=== PATIENT | male | born 1960 | race Hispanic/Latino ===

== ENCOUNTER 2017-09-16 02:01 | Inpatient (IN) | payer MEDICARE, OTHER ==
[~2017-09-16] VITALS: Ht 152.4 cm; Wt 110.5 kg
[2017-09-16] VITALS (8 sets, daily range): BP systolic 111–143; BP diastolic 49–81
[2017-09-16] MEDS ORDERED: ONDANSETRON HCL INJ 2 MG/ML VIAL IV STA (02:44)
[2017-09-16] MEDS ORDERED: MORPHINE SULFATE 2 MG/ML SYR IV STA (02:44)
[2017-09-16] MEDS ORDERED: PANTOPRAZOLE 40 MG 10ML VIAL IV STA (02:44)
[2017-09-16] MEDS ORDERED: SODIUM CHLORIDE 0.9% 1000ML 1,000 ML IV STA (02:44)
[2017-09-16 02:51] LABS: BASOPHILS # (AUTO) 0.1 (0.0-0.1); BASOPHILS % 0.9 % (0.0-1.0); EOSINOPHILS # (AUTO) 0.1 (0.0-0.4); EOSINOPHILS % 1.1 % (0.0-6.0); HEMATOCRIT 43.5 % (38.2-49.6); HEMOGLOBIN 14.9 g/dL (14.0-18.0); LYMPHOCYTES # (AUTO) 4.5 (1.0-3.2); LYMPHOCYTES % 59.4 % (18.0-39.1); MEAN CORPUSCULAR HEMOGLOBIN 29.8 pg (28-32); MEAN CORPUSCULAR HGB CONC 34.3 g/dL (31-35); MONOCYTES # (AUTO) 0.6 (0.2-0.8); MONOCYTES % 7.5 % (4.4-11.3); NEUTROPHILS # (AUTO) 2.3 (2.1-6.9); NEUTROPHILS % 30.8 % (38.7-80.0); PLATELET COUNT 274 x10e3/uL (140-360); RED CELL DISTRIBUTION WIDTH 12.6 % (11.7-14.4)
[2017-09-16 02:53] LABS: BILIRUBIN,URINE NEGATIVE (NEGATIVE); KETONES,URINE NEGATIVE (NEGATIVE); LEUKOCYTE ESTERASE ,URINE NEGATIVE (NEGATIVE); NITRITE,URINE NEGATIVE (NEGATIVE); PROTEIN,URINE DIPSTICK NEGATIVE (NEGATIVE); URINE UROBILINOGEN 0.2 mg/dL (0.2 - 1)
[2017-09-16 02:54] LABS: CLARITY,URINE CLEAR (CLEAR); COLOR,URINE YELLOW (YELLOW)
[2017-09-16 02:56] LABS: INR 1.03; PROTHROMBIN TIME 12.7 seconds (11.9-14.5)
[2017-09-16 02:58] LABS: BACTERIA,URINE RARE /HPF; EPITHELIAL CELLS,URINE FEW /LPF; RBC,URINE 0-5 /HPF (0-5); WBC,URINE (MAN) 0-5 /HPF (0-5)
[2017-09-16 03:06] LABS: ALANINE AMINOTRANSFERASE 55 IU/L (0-55); ALBUMIN 4.3 g/dL (3.5-5.0); ALBUMIN/GLOBULIN RATIO 1.1 (0.8-2.0); ALKALINE PHOSPHATASE 64 IU/L (40-150); ANION GAP 15.9 mmol/L (8-16); BLOOD UREA NITROGEN 9 mg/dL (7-26); BUN/CREATININE RATIO 10 (6-25); CALCIUM 9.6 mg/dL (8.4-10.2); CARBON DIOXIDE 20 mmol/L (22-29); CHLORIDE 104 mmol/L (98-107); CREATINE KINASE 56 IU/L (30-200); CREATININE, SERUM 0.94 mg/dL (0.72-1.25); EST GLOMERULAR FILTRATION RATE > 60 ML/MIN (60-); GLUCOSE 231 mg/dL (74-118); POTASSIUM 3.9 mmol/L (3.5-5.1); SODIUM 136 mmol/L (136-145)
--- NOTE | 2017-09-16 03:20 | Diagnostic Imaging Report ---
CHEST 2 VIEWS, Technique: CHEST 2 VIEWS Comparison: None Clinical history: \S\CP AROUND LEFT PACEMAKER INTO ARM NON-REPRODUCIBLE \[id number] \[id number] DISCUSSION: Left chest wall dual-lead pacer with leads projecting over the right atrium and ventricle. Cardiomediastinal silhouette is within normal limits. Linear left basilar atelectasis/scarring. No consolidation, edema, effusion or pneumothorax. IMPRESSION: No acute abnormality Signed by: Dr Georgette Phan MD on 09/16/2017 3:16 AM
[2017-09-16] MEDS ORDERED: HYDROCODONE/APAP 10MG-325MG TAB PO PRN (05:45)
[2017-09-16] MEDS ORDERED: ONDANSETRON HCL 4 MG ORAL DISINTEGRATING TAB PO PRN (05:45)
[2017-09-16] MEDS ORDERED: MORPHINE SULFATE 4 MG/ML SYR IV PRN (05:45)
[2017-09-16] MEDS ORDERED: NORCO 7.5-3251 EACH PO (06:33)
[2017-09-16] MEDS ORDERED: VERAPAMIL ER120 MG PO (06:34)
[2017-09-16] MEDS ORDERED: ZOFRAN ODT4 MG (06:35)
[2017-09-16] MEDS ORDERED: DEXILANT60 MG PO (06:36)
[2017-09-16] MEDS ORDERED: BUTALB-ACETAMI1 EACH PO (06:39)
[2017-09-16] MEDS ORDERED: ZOLPIDEM TARTRAT5 MG PO (06:39)
[2017-09-16] MEDS ORDERED: SERTRALINE HCL100 MG PO (06:39)
[2017-09-16] MEDS ORDERED: DIOVAN80 MG PO (06:40)
[2017-09-16] MEDS ORDERED: METFORMIN HCL850 MG PO (06:41)
[2017-09-16] MEDS ORDERED: GEMFIBROZIL600 MG (06:42)
[2017-09-16] MEDS ORDERED: DICYCLOMINE HCL20 MG PO (06:42)
--- OUTSIDE RECORDS SUMMARY | 2017-09-16 07:11 | XMS REPORT ---
Author Author [facility] Address Unknown Phone Unavailable Care Team Providers Care Staff Readiness Officer Name Role Phone JAYLAN BRUCE Unavailable Unavailable Problems This patient has no known problems. Allergies, Adverse Reactions, Alerts This patient has no known allergies or adverse reactions. Medications This patient has no known medications. Results Test Description Test Time Test Comments Text Results Atomic Results Result Comments CHEST 2 VIEWS [place] [address] Patient Name: DAMIEN SUMNER MR #: [id number] : 1960 Age/Sex: 57/M Req #: [id number] Adm Physician: Ordered by: JAYLAN BRUCE MD Report #: [id number] Location: ER Room/Bed: Procedure: [id number] DX/CHEST 2 VIEWS Exam Date: 09/16/17 Exam Time: 257 REPORT STATUS: Signed CHEST 2 VIEWS, Technique: CHEST 2 VIEWS Comparison: None Clinical history: S CP AROUND LEFT PACEMAKER INTO ARM NON-REPRODUCIBLE DISCUSSION: Left chest wall dual-lead pacer with leads projecting over the right atrium and ventricle. Cardiomediastinal silhouette is within normal limits. Linear left basilar atelectasis/ scarring. No consolidation, edema, effusion or pneumothorax. IMPRESSION : No acute abnormality Signed by: Dr Geovani Phan MD on 09/16/2017 3:16 AM Dictated By: GEOVANI PHAN MD 5 Transcribed By: KATHY on 09/16/17315 COPY TO: JAYLAN BRUCE MD
[2017-09-16] MEDS ORDERED: INSULIN REGULAR, HUMAN 100 UNIT/1 ML 3ML VIAL SQ SCH (07:30)
[2017-09-16] MEDS ORDERED: VALSARTAN 80 MG TAB PO SCH (09:00)
[2017-09-16] MEDS ORDERED: VERAPAMIL HCL 180 MG TBER PO SCH (09:00)
[2017-09-16 10:28] LABS: CREATINE KINASE 52 IU/L (30-200)
[2017-09-16] MEDS: INSULIN REGULAR, HUMAN 100 UNIT/1 ML 3ML VIAL SQ SCH ×3 (11:30→21:45)
[2017-09-16] MEDS: DICYCLOMINE HCL 20 MG TAB PO SCH ×3 (13:00→21:42)
[2017-09-16] MEDS ORDERED: CLOPIDOGREL BISULFATE 75 MG TAB PO ONE (16:45)
[2017-09-16] MEDS ORDERED: METFORMIN HCL 500 MG TAB CR PO SCH (17:00)
[2017-09-16] MEDS ORDERED: METFORMIN HCL 850 MG TAB PO SCH (17:00)
[2017-09-16] MEDS: HYDROCODONE/APAP 7.5MG-325MG 1 EA TAB PO SCH (17:24)
[2017-09-16] MEDS: GEMFIBROZIL 600 MG TAB PO SCH (17:24)
--- NOTE | 2017-09-16 17:32 | Consultation ---
DATE OF CONSULTATION: September 16, 2017 CARDIAC CONSULTATION REASON FOR CONSULTATION: Chest pain. HISTORY: A 57-year-old gentleman who is known with obesity, hypertension, diabetes mellitus. Prior history of pacemaker implantation and coronary artery disease "70% blockage in one artery" with cardiac catheterization a few years back. Patient lives in [place], [place]. He is here with his brother, who is having advanced cirrhosis. He is staying here in [place] with his sister. While he was there, he started having chest pain. He describes the chest pain as retrosternal, radiating to his back, to his neck, and to his jaw to his arm. Patient was alarmed by that. He said that his pain is severe. It is going on for the last 4 or 5 days. He was busy with his brother, but then his pain was becoming repetitive; and, so, he decided to come to the emergency room. He was admitted for further management. Cardiac consultation is obtained. D-dimer on admission was normal. Two sets of cardiac enzymes are normal. Patient seems to be comfortable now. He is worried about pain over his left pacemaker, which is chronic since the pacemaker implantation 4 years ago. His activities are very limited because of his knee problem. He uses a cane to walk. He described his pain with typical anginal symptoms. There is sleep apnea but no orthopnea. There is shortness of breath on exertion, class III. There is no paroxysmal nocturnal dyspnea. No syncope or presyncope. REVIEW OF SYSTEMS: CARDIAC: As per above. PULMONARY: No cough. No hemoptysis. No pleuritic chest pain. Easy fatigability and shortness of breath on exertion. GI: Constipation. : Difficulty of urination. MUSCULAR: Back pain, knee pain, uses a cane to walk. Peripheral vascular claudication. NEUROLOGICAL: Peripheral neuropathy symptoms. No localized deficit. No seizure activity. OTHERS: Chronic back pain, knee pain, on pain medication. HOME MEDICATIONS: Long list including verapamil SR 250 mg a day, valsartan 80 mg a day, [place], morphine sulfate and other p.r.n. medication. ALLERGIES: PENICILLIN, SULFA AND ASPIRIN. ASPIRIN CAUSED PATIENT TO HAVE HIVES. PAST MEDICAL HISTORY: 1. Obesity. 2. Severe advanced degenerative joint disease. 3. Hypertension. 4. Diabetes mellitus. 5. Coronary artery disease. 6. Pacemaker. 7. Hyperlipidemia. 8. Diverticulosis. 9. Major GI surgery for severe diverticulitis and diverticulosis. 10. Right and left knee replacement. 11. Chronic aches and pains. 12. Bilateral carpal tunnel surgery. 13. Pacemaker implantation. 14. Severe peripheral neuropathy. SOCIAL HISTORY: He is . He used to work in [employer], but he is crippled because of his back problem and his other problem. He stopped smoking many years ago. He does not drink alcohol. FAMILY HISTORY: Several members of the family are with diabetes mellitus, hypertension. A brother with liver cirrhosis. PHYSICAL EXAMINATION: GENERAL: Morbidly obese gentleman. VITAL SIGNS: Height of 5 feet 2 inches, weight of 250 pounds. Blood pressure 140/80. Heart rate of 60. Respiratory rate of 18. HEENT: Pupils are reactive. NECK: No elevation of jugular venous pulsation. No bruit. CHEST: Decreased air entry but clear to auscultation and percussion. Pacemaker noted in place. HEART: PMI 5th left intercostal space. Normal 1st and 2nd heart sounds. ABDOMEN: Soft with good bowel sounds. EXTREMITIES: No cyanosis, no clubbing, no edema. Scar of previous knee surgery. Decreased feet pulses. NEUROLOGIC: Awake, alert, oriented. Uses cane to walk. No motor deficits. LABORATORY DATA: Sodium of 136, potassium 3.9, BUN of 10, creatinine of 0.94, glucose of 231. PT of 12 seconds, PTT of 33 seconds. White blood cell count of 7.49, hemoglobin 14.9, hematocrit 44%, platelet count of 270,000. EKG showing sinus rhythm, low voltage. BNP is normal. Two sets of cardiac enzymes are normal. D-dimer is normal. IMPRESSION AND PLAN: 1. Chest pain in patient with multiple risk factors, coronary artery disease until proven otherwise, namely in view of "one artery was 70% blocked" a few years back. 2. Pacemaker implantation. 3. Hypertension. 4. Diabetes mellitus with end-organ damage. 5. Obesity. 6. Hypercholesteremia. 7. Sleep apnea. 8. Severe peripheral neuropathy. 9. Chronic pain. Cardiac-de oliveira, we discussed his status at length. His questions are answered. Options of workup are discussed. Will schedule patient for nuclear cardiac stress test, and it will be Lexiscan since patient is unable to exercise. Patient will be loaded with Plavix. Case discussed and explained. Questions are answered. Job#: [id number] EV
[2017-09-16] MEDS ORDERED: ACETAMIN/BUTALBITAL/CAFFEINE TAB PO PRN (18:00)
[2017-09-16] MEDS ORDERED: ACETAMIN/BUTALBITAL/CAFFEINE TAB PO SCH (18:00)
[2017-09-16] MEDS: ZOLPIDEM TARTRATE 5 MG TAB PO SCH (21:42)
[2017-09-16] MEDS: SERTRALINE HCL 100 MG TAB PO SCH (21:43)
[2017-09-17] VITALS (7 sets, daily range): BP systolic 113–151; BP diastolic 63–83
[2017-09-17] MEDS: HYDROCODONE/APAP 7.5MG-325MG 1 EA TAB PO SCH ×3 (06:00→12:00)
[2017-09-17 06:40] LABS: BASOPHILS # (AUTO) 0.1 (0.0-0.1); BASOPHILS % 1.2 % (0.0-1.0); EOSINOPHILS # (AUTO) 0.1 (0.0-0.4); HEMATOCRIT 40.2 % (38.2-49.6); HEMOGLOBIN 13.5 g/dL (14.0-18.0); LYMPHOCYTES # (AUTO) 2.5 (1.0-3.2); LYMPHOCYTES % 49.4 % (18.0-39.1); MEAN CORPUSCULAR HEMOGLOBIN 29.6 pg (28-32); MEAN CORPUSCULAR HGB CONC 33.6 g/dL (31-35); MEAN CORPUSCULAR VOLUME 88.2 fL (81-99); MONOCYTES # (AUTO) 0.5 (0.2-0.8); MONOCYTES % 9.5 % (4.4-11.3); NEUTROPHILS # (AUTO) 1.9 (2.1-6.9); NEUTROPHILS % 37.5 % (38.7-80.0); PLATELET COUNT 206 x10e3/uL (140-360); RED BLOOD COUNT 4.56 x10e6/uL (4.3-5.7); RED CELL DISTRIBUTION WIDTH 12.4 % (11.7-14.4)
[2017-09-17 07:03] LABS: ALANINE AMINOTRANSFERASE 50 IU/L (0-55); ALBUMIN 3.7 g/dL (3.5-5.0); ALBUMIN/GLOBULIN RATIO 1.1 (0.8-2.0); ALKALINE PHOSPHATASE 58 IU/L (40-150); ANION GAP 13.1 mmol/L (8-16); BLOOD UREA NITROGEN 10 mg/dL (7-26); BUN/CREATININE RATIO 11 (6-25); CALCIUM 9.2 mg/dL (8.4-10.2); CARBON DIOXIDE 25 mmol/L (22-29); CHLORIDE 105 mmol/L (98-107); CHOL/HDL RATIO 4.8 (3.9-4.7); CHOLESTEROL 184 MD/DL (0-199); CREATININE, SERUM 0.87 mg/dL (0.72-1.25); EST GLOMERULAR FILTRATION RATE > 60 ML/MIN (60-); GLUCOSE 198 mg/dL (74-118); HDL CHOLESTEROL 38 MG/DL (40-60); LDL CHOLESTEROL 108 MG/DL (60-130); POTASSIUM 4.1 mmol/L (3.5-5.1); SODIUM 139 mmol/L (136-145); TRIGLYCERIDES 192 MG/DL (0-149)
[2017-09-17 07:24] LABS: THYROID STIMULATING HORMONE 1.557 uIU/mL (0.350-4.940)
[2017-09-17] MEDS: INSULIN REGULAR, HUMAN 100 UNIT/1 ML 3ML VIAL SQ SCH ×4 (07:30→20:30)
[2017-09-17] MEDS: VALSARTAN 80 MG TAB PO SCH (09:00)
[2017-09-17] MEDS: VERAPAMIL HCL 120 MG TABSR PO SCH (09:00)
[2017-09-17] MEDS: DICYCLOMINE HCL 20 MG TAB PO SCH ×4 (09:00→20:30)
[2017-09-17] MEDS: GEMFIBROZIL 600 MG TAB PO SCH ×2 (09:00→17:15)
[2017-09-17] MEDS ORDERED: REGADENOSON 0.4 MG/5 ML SYR IV ONE (10:33)
[2017-09-17] MEDS: PANTOPRAZOLE SOD 40 MG TABEC PO SCH (12:53)
[2017-09-17] MEDS: CLOPIDOGREL BISULFATE 75 MG TAB PO SCH (12:53)
[2017-09-17] MEDS: SODIUM CHLORIDE 0.9% 1000ML 1,000 ML IV SCH (12:53)
--- NOTE | 2017-09-17 12:54 | Cardiology Report ---
DATE OF STUDY: September 17, 2017 LEXISCAN NUCLEAR CARDIAC STRESS TEST TECHNICAL DETAILS: This is resting stress protocol. For the resting pictures, patient is given a total of 10.7 mCi of Myoview. Half an hour after injection, proper scanning was done. For the stress part, patient attached to the EKG machine, baseline measurement was done, and then patient given 0.4 mg of Lexiscan followed immediately by 27 mCi of Myoview. Proper SPECT imaging and scanning and processing were done. Patient tolerated the procedure. There were no complication. RESULTS A. Stress part: There were no changes in the blood pressure and heart rate. They remained stable from 82 to 100 and blood pressure at 130/80. No significant EKG changes. B. Nuclear stress test. 1. Myocardial perfusion. A. Resting image showed smooth distribution of the isotopes through all the segments with no abnormal uptake. B. Stress perfusion images showed abnormality with decreased uptake in the lateral segment as well as the part of the anterolateral segments. 2. Volume measurement: Left ventricular end-diastolic volume of 73 mL and systolic volume of 31 mL with an ejection fraction of 37%. 3. Segmental wall motion: All segments seem to be gonzalo normally except for mild hypokinesis involving the apical and the lateral segments. IMPRESSION: Abnormal nuclear stress test with ischemic perfusion defect involving the lateral and segmental wall motion abnormality with preserved left ventricular systolic function. Job#: [id number] HOMAR MAN
[2017-09-17] MEDS: MORPHINE SULFATE 2 MG/ML SYR IV PRN (16:30)
[2017-09-17] MEDS ORDERED: METFORMIN HCL 500 MG TAB CR PO SCH (17:00)
[2017-09-17] MEDS: SERTRALINE HCL 100 MG TAB PO SCH (20:30)
[2017-09-17] MEDS: ZOLPIDEM TARTRATE 5 MG TAB PO SCH (20:30)
[2017-09-17] MEDS: HYDROCODONE/APAP 7.5MG-325MG 1 EA TAB PO PRN (22:18)
[2017-09-18] VITALS (12 sets, daily range): BP systolic 112–142; BP diastolic 54–81
[2017-09-18] MEDS: MORPHINE SULFATE 2 MG/ML SYR IV PRN ×5 (00:02→21:20)
[2017-09-18 07:05] LABS: BASOPHILS # (AUTO) 0.1 (0.0-0.1); EOSINOPHILS # (AUTO) 0.1 (0.0-0.4); EOSINOPHILS % 1.6 % (0.0-6.0); HEMATOCRIT 41.2 % (38.2-49.6); HEMOGLOBIN 14.3 g/dL (14.0-18.0); LYMPHOCYTES # (AUTO) 2.7 (1.0-3.2); LYMPHOCYTES % 52.8 % (18.0-39.1); MEAN CORPUSCULAR HEMOGLOBIN 29.7 pg (28-32); MEAN CORPUSCULAR HGB CONC 34.7 g/dL (31-35); MEAN CORPUSCULAR VOLUME 85.7 fL (81-99); MONOCYTES # (AUTO) 0.4 (0.2-0.8); NEUTROPHILS # (AUTO) 1.9 (2.1-6.9); NEUTROPHILS % 36.4 % (38.7-80.0); PLATELET COUNT 229 x10e3/uL (140-360); RED BLOOD COUNT 4.81 x10e6/uL (4.3-5.7); RED CELL DISTRIBUTION WIDTH 12.2 % (11.7-14.4)
[2017-09-18] MEDS ORDERED: HEPARIN SOD/SOD CHLORIDE 2,000 ML PRN (07:13)
[2017-09-18] MEDS ORDERED: IOPAMIDOL 370 MG/ML 200 ML INFUS..BTL INJ PRN (07:13)
[2017-09-18] MEDS ORDERED: LIDOCAINE HCL 2% LOCAL 20 ML VIAL PRN (07:13)
[2017-09-18] MEDS ORDERED: MIDAZOLAM HCL 2 MG/2 ML VIAL PRN (07:27)
[2017-09-18] MEDS: INSULIN REGULAR, HUMAN 100 UNIT/1 ML 3ML VIAL SQ SCH ×4 (07:30→22:36)
[2017-09-18 07:32] LABS: ALANINE AMINOTRANSFERASE 47 IU/L (0-55); ALBUMIN/GLOBULIN RATIO 1.2 (0.8-2.0); ALKALINE PHOSPHATASE 52 IU/L (40-150); ANION GAP 12.8 mmol/L (8-16); BLOOD UREA NITROGEN 14 mg/dL (7-26); BUN/CREATININE RATIO 16 (6-25); CALCIUM 9.2 mg/dL (8.4-10.2); CARBON DIOXIDE 24 mmol/L (22-29); CHLORIDE 104 mmol/L (98-107); CREATININE, SERUM 0.89 mg/dL (0.72-1.25); EST GLOMERULAR FILTRATION RATE > 60 ML/MIN (60-); GLUCOSE 187 mg/dL (74-118); POTASSIUM 3.8 mmol/L (3.5-5.1); SODIUM 137 mmol/L (136-145)
[2017-09-18] MEDS ORDERED: SODIUM CHLORIDE 0.9% 1000ML 1,000 ML PRN (08:15)
[2017-09-18] MEDS: SODIUM CHLORIDE 0.9% 1000ML 1,000 ML IV SCH (08:15)
[2017-09-18] MEDS: FENTANYL CITRATE/PF 100MCG/2 ML INJ PRN ×2 (08:40→18:44)
[2017-09-18] MEDS: VERAPAMIL HCL 120 MG TABSR PO SCH ×2 (09:00→10:41)
[2017-09-18] MEDS: CLOPIDOGREL BISULFATE 75 MG TAB PO SCH (09:00)
[2017-09-18] MEDS: PANTOPRAZOLE SOD 40 MG TABEC PO SCH ×2 (09:00→10:41)
[2017-09-18] MEDS: GEMFIBROZIL 600 MG TAB PO SCH ×2 (09:00→17:00)
[2017-09-18] MEDS: VALSARTAN 80 MG TAB PO SCH ×2 (09:00→10:41)
[2017-09-18] MEDS: DICYCLOMINE HCL 20 MG TAB PO SCH ×4 (09:00→20:57)
--- NOTE | 2017-09-18 10:12 | Operative Report ---
DATE OF PROCEDURE: September 18, 2017 TITLE OF PROCEDURE: Left cardiac catheterization. INDICATIONS: Repeated chest pain, angina unstable in nature, known coronary artery disease, "one artery 70% disease by cardiac cath a few years back," and positive nuclear stress test. TECHNICAL DETAILS: After the usual sterile preparation and draping procedure, intravenous Versed and fentanyl were given for sedation and local Xylocaine for anesthesia. A 4-Maori sheath was established in place. Yary left 4 and 3DRC catheters to engage coronaries. Pigtail for hemodynamic measurement and left ventriculogram. At the end of the procedure, sheath was removed. Hemostasis achieved manually. No complication and no blood loss. RESULTS A. Coronary angiogram: 1. Left main free of disease. 2. LAD 30% proximal disease, 40% mid-LAD disease. 3. Circumflex coronary artery giving 3 obtuse marginals. The 1st and the 3rd are small with 30% to 40% disease. The 2nd obtuse marginal is large and free of disease. 4. Right coronary artery: There is proximal lesion approximately 50% to 60%. B: Hemodynamics: Aorta pressure 130/80. LV pressure 130/17. C. Left ventriculogram in the right anterior oblique view showed normal size ventricle with an ejection fraction of 60%. IMPRESSION 1. Single-vessel coronary artery disease, right coronary artery. 2. Preserved left ventricular systolic function at 60%. COMPLICATIONS: None. BLOOD LOSS: None. RECOMMENDATION: Medical therapy. Job#: [id number]
[2017-09-18] MEDS: HYDROCODONE/APAP 7.5MG-325MG 1 EA TAB PO PRN (19:45)
[2017-09-18] MEDS: ZOLPIDEM TARTRATE 5 MG TAB PO SCH (20:56)
[2017-09-18] MEDS: SERTRALINE HCL 100 MG TAB PO SCH (20:57)
[2017-09-18] MEDS ORDERED: ATORVASTATIN 20 MG TAB PO SCH (21:00)
[2017-09-19] VITALS: BP 120/56
[2017-09-19] MEDS: SODIUM CHLORIDE 0.9% 1000ML 1,000 ML IV SCH (03:34)
[2017-09-19] MEDS: MORPHINE SULFATE 2 MG/ML SYR IV PRN (03:41)
[2017-09-19 04:00] VITALS: BP 130/57
[2017-09-19 07:45] VITALS: BP 122/58
[2017-09-19 08:00] VITALS: BP 122/58
[2017-09-19] MEDS: INSULIN REGULAR, HUMAN 100 UNIT/1 ML 3ML VIAL SQ SCH (08:00)
[2017-09-19] MEDS: GEMFIBROZIL 600 MG TAB PO SCH (09:00)
[2017-09-19] MEDS: VALSARTAN 80 MG TAB PO SCH (09:00)
[2017-09-19] MEDS: DICYCLOMINE HCL 20 MG TAB PO SCH (09:00)
[2017-09-19] MEDS: CLOPIDOGREL BISULFATE 75 MG TAB PO SCH (09:00)
[2017-09-19] MEDS: VERAPAMIL HCL 120 MG TABSR PO SCH (09:00)
[2017-09-19] MEDS: PANTOPRAZOLE SOD 40 MG TABEC PO SCH (09:00)
[2017-09-19] MEDS: HYDROCODONE/APAP 7.5MG-325MG 1 EA TAB PO PRN (11:19)
[2017-09-19 12:00] VITALS: BP 105/55
== END 2017-09-19 14:45 | disposition home or self-care (01) | DRG 287 ==
LOC: ER 02:01 → ERHOLD 07:06 → IMCU 07:10 → OBSVTOIN 09-17 12:56 → MED/SURG3 09-17 17:05
PROC: 4A023N7 Measurement of Cardiac Sampling and Pressure, Left Heart, Percutaneous Approach (ICD-10-PCS; principal; 2017-09-18)
PROC: B2111ZZ Fluoroscopy of Multiple Coronary Arteries using Low Osmolar Contrast (ICD-10-PCS; 2017-09-18)
PROC: B2151ZZ Fluoroscopy of Left Heart using Low Osmolar Contrast (ICD-10-PCS; 2017-09-18)
DX: I25.110 Atherosclerotic heart disease of native coronary artery with unstable angina pectoris (principal); E11.42 Type 2 diabetes mellitus with diabetic polyneuropathy; Z68.42 Body mass index [BMI] 45.0-49.9, adult; I10 Essential (primary) hypertension; E78.5 Hyperlipidemia, unspecified; E66.01 Morbid (severe) obesity due to excess calories; K21.9 Gastro-esophageal reflux disease without esophagitis; M54.9 Dorsalgia, unspecified; G89.29 Other chronic pain; Z96.653 Presence of artificial knee joint, bilateral; Z87.891 Personal history of nicotine dependence; Z88.6 Allergy status to analgesic agent; Z88.0 Allergy status to penicillin; Z88.2 Allergy status to sulfonamides
CPT/HCPCS: 36140; 36415; 71046; 77002; 78452; 80053; 80061; 81001; 82550; 82553; 82948; 83036; 83735; 83880; 84443; 84484; 85025; 85379; 85610; 85730; 87086; 93005; 93017; 93306; 93452; 93458; 99284; A9502; C1766; G0378; J2001; J2250; J2270; J2405; J7030; Q9967

== ENCOUNTER → 2018-03-02 | Day surgery (SDC) | payer MEDICARE ==
[2018-02-18 12:26] LABS: BASOPHILS # (AUTO) 0.1 (0.0-0.1); BASOPHILS % 1.1 % (0.0-1.0); EOSINOPHILS # (AUTO) 0.1 (0.0-0.4); EOSINOPHILS % 1.4 % (0.0-6.0); HEMATOCRIT 41.9 % (38.2-49.6); HEMOGLOBIN 14.4 g/dL (14.0-18.0); LYMPHOCYTES % 47.6 % (18.0-39.1); MEAN CORPUSCULAR HEMOGLOBIN 29.3 pg (28-32); MEAN CORPUSCULAR HGB CONC 34.4 g/dL (31-35); MEAN CORPUSCULAR VOLUME 85.3 fL (81-99); MONOCYTES # (AUTO) 0.5 (0.2-0.8); MONOCYTES % 7.2 % (4.4-11.3); NEUTROPHILS # (AUTO) 2.7 (2.1-6.9); NEUTROPHILS % 42.4 % (38.7-80.0); PLATELET COUNT 224 x10e3/uL (140-360); RED BLOOD COUNT 4.91 x10e6/uL (4.3-5.7); RED CELL DISTRIBUTION WIDTH 12.5 % (11.7-14.4)
[2018-02-18 12:52] LABS: ANION GAP 14.4 mmol/L (8-16); BLOOD UREA NITROGEN 13 mg/dL (7-26); BUN/CREATININE RATIO 14 (6-25); CALCIUM 9.7 mg/dL (8.4-10.2); CARBON DIOXIDE 25 mmol/L (22-29); CHLORIDE 102 mmol/L (98-107); CREATININE, SERUM 0.91 mg/dL (0.72-1.25); EST GLOMERULAR FILTRATION RATE > 60 ML/MIN (60-); GLUCOSE 276 mg/dL (74-118); POTASSIUM 4.4 mmol/L (3.5-5.1); SODIUM 137 mmol/L (136-145)
[~2018-03-02] MED LIST: BUTALB-ACETAMI1 EACH PO; CELEBREX200 MG; DEXILANT60 MG PO; DICYCLOMINE HCL20 MG PO; DIOVAN80 MG PO; FENTANYL CITRATE/PF 100MCG/2 ML INJ ONE; GABAPENTIN300 MG PO; GEMFIBROZIL600 MG; KETAMINE HCL INJ 50 MG/ML 10 ML VIAL ONE; LEVEMIR100 UNIT/1; LIDOCAINE HCL 2% LOCAL INJ 5 ML SDV VIAL INJ ONE; METFORMIN HCL850 MG PO; MIDAZOLAM HCL 2 MG/2 ML VIAL ONE; NORCO 7.5-3251 EACH PO; PROPOFOL IV EMULSION 10 MG/ML 50 ML VIAL ONE; SERTRALINE HCL100 MG PO; VERAPAMIL ER120 MG PO; VICTOZA 2-0.6 MG/0.1; ZOFRAN ODT4 MG; ZOLPIDEM TARTRAT5 MG PO
== END | disposition home or self-care (01) ==
LOC: OR 11:12
PROVIDERS: ATTEND Internal Medicine Gastroenterology
DX: K29.70 Gastritis, unspecified, without bleeding (principal); D12.2 Benign neoplasm of ascending colon; K31.7 Polyp of stomach and duodenum; K57.30 Diverticulosis of large intestine without perforation or abscess without bleeding; K44.9 Diaphragmatic hernia without obstruction or gangrene; R19.7 Diarrhea, unspecified; K60.2 Anal fissure, unspecified; K64.8 Other hemorrhoids; E11.9 Type 2 diabetes mellitus without complications; I10 Essential (primary) hypertension; R07.9 Chest pain, unspecified; M25.50 Pain in unspecified joint; Z88.6 Allergy status to analgesic agent; Z88.0 Allergy status to penicillin; Z88.2 Allergy status to sulfonamides; Z01.810 Encounter for preprocedural cardiovascular examination; Z79.4 Long term (current) use of insulin; Z68.41 Body mass index [BMI] 40.0-44.9, adult; Z95.0 Presence of cardiac pacemaker; Z90.49 Acquired absence of other specified parts of digestive tract; Z80.0 Family history of malignant neoplasm of digestive organs
CPT/HCPCS: 36415 ×2; 43239; 45384; 45385; 80048; 82948; 85025; 88305; 88312; 93005 ×2; J2001; J2250; 45378